=== PATIENT | male | born 1965 | race American Indian/Alaskan Native ===

== ENCOUNTER 2017-08-17 06:12 | Day surgery (SDC) | payer BC ==
[2017-08-17] MEDS ORDERED: WATER FOR IRRIG STERILE IR ONE (07:16)
[2017-08-17] MEDS ORDERED: WATER FOR IRRIG STERILE ONE (07:16)
--- NOTE | 2017-08-17 07:27 | Anesthesia Day of Surgery ---
Anesthesia Day of Surgery - Day of Surgery Patient Examined: Yes Patient H&P Reviewed: Yes Patient is NPO: Yes
--- NOTE | 2017-08-17 07:27 | Anesthesia Consultation ---
Anesthesia Consult and Med Hx Date of service: 08/17/17 - Airway Anesthetic Teeth Evaluation: Good (misaligned) Mental/Hyoid Distance: Adequate Mallampati Class: Class II Intubation Access Assessment: Probably Good - Pulmonary Exam CTA: Yes - Cardiac Exam Cardiac Exam: RRR - Pre-Operative Health Status ASA Pre-Surgery Classification: ASA2 Proposed Anesthetic Plan: MAC - Pulmonary Hx Smoking: No - Cardiovascular System Hx Hypertension: Yes - Central Nervous System Hx Neuromuscular Disorder: No Hx Psychiatric Problems: No - Gastrointestinal Hx Gastroesophageal Reflux Disease: No - Endocrine Hx Renal Disease: Yes (ABNORMAL RENAL FUNCTION) - Hematic Hx Anemia: No Hx Sickle Cell Disease: No - Other Systems Hx Alcohol Use: No Hx Substance Use: No Hx Cancer: No Hx Obesity: No
[2017-08-17] MEDS ORDERED: DIPRIVAN 10 MG/ML IV ONE ×4 (07:31→07:32)
[2017-08-17] MEDS: NACL 0.9% 1000 ML 1,000 ML IV SCH ×2 (07:59→08:50)
--- NOTE | 2017-08-17 08:22 | Discharge Summary ---
Short Stay Discharge Plan Activity: other (march d/c when stable. cl liq diet. advance to reg diet at ana. rto wed) Weight Bearing Status: Full Weight Bearing Diet: regular Follow up with: CINDI CARRASCO MD [Staff Physician] - 48 Hours
[2017-08-17 09:10] VITALS: BP 124/78
[2017-08-17] MEDS ORDERED: NEO SYNEPHRINE/NS Syringe(OR USE) IV ONE (10:00)
--- NOTE | 2017-08-17 10:04 | Post Anesthesia Evaluation ---
- Post Anesthesia Evaluation Patient Participated: Yes Airway Patent: Yes Stable Respiratory Function: Yes Nausea/Vomiting: No Temp > 96.8F: Yes Pain Manageable: Yes Adequeate Hydration: Yes Anesthesia Complications: No Block Receding Appropriately: Not Applicable Patient on Ventilator: No
--- NOTE | 2017-08-17 10:19 | Operative Report ---
PROCEDURE: Screening colonoscopy. POSTPROCEDURE FINDINGS: Essentially normal colonoscopy. SURGEON: Jam Harrell MD ANESTHESIA: IV sedation. COMPLICATIONS: None. DESCRIPTION OF PROCEDURE: The patient was taken to the GI suite, placed in the left lateral decubitus position. Anus was inspected and no external hemorrhoids noted. Rectal exam was also performed. No palpable masses. Colonoscope was then gently introduced and advanced up to the cecum. The prep was fair throughout its entirety; however, we could certainly see enough to rule out any obvious masses or gross pathology. The ascending as well as transverse and descending colon were essentially normal. Sigmoid colon showed very minimal diverticula. No other gross pathology. Rectal vault was normal. Retroflexion of the scope revealed no internal hemorrhoids or other distal rectal pathology. The patient tolerated the procedure well and left the GI suite in stable condition. JOB# [id number]/[id number]
== END 2017-08-17 06:13 | disposition home or self-care (01) ==
LOC: GIO 06:12
PROVIDERS: ATTEND Surgery
DX: Z12.11 Encounter for screening for malignant neoplasm of colon (principal); K57.30 Diverticulosis of large intestine without perforation or abscess without bleeding
CPT/HCPCS: 45378; J2370; J2704; J7030